=== PATIENT | male | born 1960 | race Caucasian/White ===

== ENCOUNTER 2020-09-15 15:10 | Emergency (ER) | payer BC ==
[2020-09-15 15:18] VITALS: BP 176/83; PULSE 66
--- NOTE | 2020-09-15 15:42 | EDM.PDOC ---
ED HPI GENERAL MEDICAL PROBLEM - General Chief Complaint: Skin Complaint Stated Complaint: R LEG AND BACK SKIN COMPLAINT/POST KNEE SURGERY Time Seen by Provider: 09/15/20 15:31 Source of Information: Reports: Patient, RN Notes Reviewed History Limitations: Reports: No Limitations - History of Present Illness INITIAL COMMENTS - FREE TEXT/NARRATIVE: Patient is a 59-year-old male who presents to the ED for a skin complaint. He notes he had a knee replacement on his right knee last week Wednesday. He notes that yesterday morning, he developed some redness and itching, with some raised bumpy areas to his inner right thigh, and the mid back where he had his nerve block done. He notes this is very very itchy, and he cannot get a lot of sleep due to the itchiness. He did not take any medications at home, because he was not sure if he could after the surgery. Otherwise the surgical site is healing well, and he has no complaints. No fevers or chills, cough or shortness of breath, no nausea/vomiting/diarrhea. - Related Data Allergies Allergy/AdvReac Type Severity Reaction Status Date / Time No Known Allergies Allergy Verified 09/15/20 15:18 Home Meds: Home Meds [place]/Min Oil/[place]ool Alcoh [Eucerin Creme] 1 dose TOP BID PRN 04/13/18 [History] Furosemide 20 mg PO DAILY 04/13/18 [History] Meloxicam 15 mg PO DAILY PRN 04/13/18 [History] carvediloL [Carvedilol] 12.5 mg PO BID 04/13/18 [History] Hydrocodone/Acetaminophen [Hydrocodone-Acetamin 5-325 mg] 1 each PO Q4H PRN 09/15/20 [History] Triamcinolone Acetonide [Triamcinolone Acetonide 0.1% Crm] 1 applic TOP ASDIRECTED #30 gm 09/15/20 [Rx] Past Medical History Cardiovascular History: Reports: Hypertension Respiratory History: Reports: Asthma, Sleep Apnea, Other (See Below) Other Respiratory History: reactive lung disease Gastrointestinal History: Reports: None Genitourinary History: Reports: None 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 Musculoskeletal History: Reports: Osteoarthritis Neurological History: Reports: None Psychiatric History: Reports: None Endocrine/Metabolic History: Reports: None Hematologic History: Reports: None Immunologic History: Reports: None Oncologic (Cancer) History: Reports: None Dermatologic History: Reports: None - Past Surgical History HEENT Surgical History: Reports: Cataract Surgery Male Surgical History: Reports: Vasectomy Musculoskeletal Surgical History: Reports: Knee Replacement (R knee 09/11/2020) Social & Family History - Family History Neurological: Reports: CVA Endocrine/Metabolic: Reports: Diabetes, type II - Tobacco Use Tobacco Use Status *Q: Never Tobacco User - Caffeine Use Caffeine Use: Reports: Coffee - Recreational Drug Use Recreational Drug Use: No ED ROS GENERAL - Review of Systems Review Of Systems: Comprehensive ROS is negative, except as noted in HPI. ED EXAM, SKIN/RASH Exam: See Below Exam Limited By: No Limitations General Appearance: Alert, WD/WN, No Apparent Distress Respiratory/Chest: No Respiratory Distress, Lungs Clear, Normal Breath Sounds, No Accessory Muscle Use, Chest Non-Tender Cardiovascular: Normal Peripheral Pulses, Regular Rate, Rhythm, No Edema Peripheral Pulses: 2+: Dorsalis Pedis (L), Dorsalis Pedis (R) Extremities: Increased Warmth ( Right knee with associated erythema), Other (Well-healing surgical wound for right knee replacement.) Neurological: Alert, Oriented, Normal Cognition, No Motor/Sensory Deficits Psychiatric: Normal Affect, Normal Mood Skin: Warm, Dry, Intact Location, Skin: Back, Lower Extremity, Right Characteristics: Maculopapular, Urticarial, Erythematous Associated features: Warmth. No: Tenderness Course - Vital Signs Last Recorded V/S: Last Vital Signs Temp 98.8 F 09/15/20 15:16 Pulse 66 09/15/20 15:16 Resp 16 09/15/20 15:16 BP 176/83 H 09/15/20 15:16 Pulse Ox 97 09/15/20 15:16 - Re-Assessments/Exams Free Text/Narrative Re-Assessment/Exam: 09/15/20 15:50 Patient presents to the ED for his rash on his right leg and back. Due to these being near surgical sites, is very likely that he could have some skin irritation due to the Betadine soap that was likely used. He will be given a prescription for triamcinolone cream, and will be recommended to take Benadryl for the itching, patient verbalized understanding. Departure - Departure Time of Disposition: 15:40 Disposition: Home, Self-Care 01 Condition: Good Clinical Impression: Contact dermatitis Qualifiers: Contact dermatitis type: irritant Contact dermatitis trigger: other trigger Qualified Code(s): L24.89 - Irritant contact dermatitis due to other agents - Discharge Information *PRESCRIPTION DRUG MONITORING PROGRAM REVIEWED*: No *COPY OF PRESCRIPTION DRUG MONITORING REPORT IN PATIENT [place]: No Prescriptions: Triamcinolone Acetonide [Triamcinolone Acetonide 0.1% Crm] 1 applic TOP ASDIRECTED #30 gm Instructions: Contact Dermatitis, [id number] Referrals: Kori Andino MD [Primary Care Provider] - Forms: ED Department Discharge Additional Instructions: You were seen in this ER for your rash on your leg, and mid back. This is likely due to a contact irritant of the Betadine soap that they used presurgically. You may use 25 mg Benadryl every 4-6 hours as needed for further itch relief. You were given a prescription for triamcinolone cream, please apply liberally to the areas 2 times a day for further rash relief. You may do this until the rash goes away. Recommend you follow-up with your provider as scheduled for follow-up appointments. Please return to the ER at any time if symptoms change or worsen. Sepsis Event Note (ED) - Evaluation Sepsis Screening Result: No Definite Risk - Focused Exam Vital Signs: Vital Signs Temp Pulse Resp BP Pulse Ox 09/15/20 15:16 98.8 F 66 16 176/83 H 97
== END 2020-09-15 15:47 | disposition home or self-care (01) ==
LOC: JD.ED 15:10
DX: L24.89 Irritant contact dermatitis due to other agents (principal); I10 Essential (primary) hypertension; J45.909 Unspecified asthma, uncomplicated; Z79.899 Other long term (current) drug therapy
CPT/HCPCS: 99282

== ENCOUNTER 2021-04-25 19:26 | Emergency (ER) | payer BC ==
[2021-04-25 19:34] VITALS: BP 142/65; PULSE 66
--- NOTE | 2021-04-25 20:02 | EDM.PDOC ---
ED HPI GENERAL MEDICAL PROBLEM - General Chief Complaint: Genitourinary Problem Stated Complaint: BLOOD IN URINE Time Seen by Provider: 04/25/21 19:32 Source of Information: Reports: Patient History Limitations: Reports: No Limitations - History of Present Illness INITIAL COMMENTS - FREE TEXT/NARRATIVE: Mr. Baird is a very pleasant 60-year-old gentleman who now presents the ED stating that he developed painless gross hematuria around 15:00 this afternoon. He states that his urine was normal in appearance when he had last urinated around noon. He denies any flank, lower abdominal, or genital injury. No prior similar symptoms. He has not taken any mryc-cfd-[id number] or home remedies to try to treat his symptoms. Here in the ED, the patient's initial BP is found to be mildly elevated at 142/65, otherwise, he is hemodynamically stable, afebrile, saturating 98% on room air. He appears to be comfortable, in no acute distress. Prior to this afternoon, the patient denies having a recent fever, chills, sore throat, ear pain, nasal or sinus congestion, cough, dyspnea, chest pain, palpitations, nausea, vomiting, constipation, diarrhea, abdominal pain, urinary symptoms, recent weight gain or weight loss, recent bloody bowel movements or black bowel movements, recent joint aches, headaches, or rashes. The patient's PCP is Dr. Kori Youssef. His Orthopedic Surgeon is Dr. Albert Bauman. He has not received a COVID vaccination. - Related Data Allergies Allergy/AdvReac Type Severity Reaction Status Date / Time No Known Allergies Allergy Verified 04/25/21 19:34 Home Meds: Home Meds Furosemide 20 mg PO DAILY 04/13/18 [History] Meloxicam 15 mg PO DAILY PRN 04/13/18 [History] carvediloL [Carvedilol] 12.5 mg PO DAILY 04/13/18 [History] Allopurinol [Zyloprim] 300 mg PO DAILY 04/25/21 [History] Past Medical History Cardiovascular History: Reports: Hypertension Respiratory History: Reports: Sleep Apnea (nightly CPAP) Musculoskeletal History: Reports: Gout (aspiration-proven), Osteoarthritis Endocrine/Metabolic History: Reports: Obesity/BMI 30+ - Infectious Disease History Infectious Disease History: Reports: Chicken Pox - Past Surgical History HEENT Surgical History: Reports: Cataract Surgery (bilateral) Male Surgical History: Reports: Vasectomy (x 2) Musculoskeletal Surgical History: Reports: Knee Replacement (bilateral), Other (See Below) (Right ankle gout surgery) Social & Family History - Tobacco Use Tobacco Use Status *Q: Never Tobacco User Second Hand Smoke Exposure: No - Caffeine Use Caffeine Use: Reports: None - Alcohol Use Alcohol Use History: Yes Alcohol Use Frequency: Rarely - Recreational Drug Use Recreational Drug Use: Yes Drug Use in Last 12 Months: No Recreational Drug Type: Reports: Marijuana/Hashish (last smoked as a teenager) - Living Situation & Occupation Living situation: Reports: , with Spouse, with Family (4 kids) Occupation: Employed ([employer]) ED ROS GENERAL - Review of Systems Review Of Systems: Comprehensive ROS is negative, except as noted in HPI. ED EXAM, RENAL/ - Physical Exam Exam: See Below Exam Limited By: No Limitations General Appearance: Alert, WD/WN, No Apparent Distress Eye Exam: Bilateral Eye: EOMI, Normal Inspection Ears: Normal External Exam, Hearing Grossly Normal Nose: Normal Inspection Throat/Mouth: Normal Inspection, Normal Lips, Normal Voice, No Airway Compromise Head: Atraumatic, Normocephalic Neck: Normal Inspection, Full Range of Motion Respiratory/Chest: No Respiratory Distress, Lungs Clear, Normal Breath Sounds, No Accessory Muscle Use Cardiovascular: Normal Peripheral Pulses, Regular Rate, Rhythm, No Gallop, No JVD, No Murmur, No Rub GI/Abdominal: Normal Bowel Sounds, Soft, Non-Tender, No Organomegaly, No Distention, No Abnormal Bruit, No Mass Back Exam: Normal Inspection, Full Range of Motion. No: CVA Tenderness (L), CVA Tenderness (R) Extremities: Normal Inspection, Normal Range of Motion, Normal Capillary Refill Neurological: Alert, Oriented, Normal Cognition, No Motor/Sensory Deficits Psychiatric: Normal Affect Skin Exam: Warm, Dry, Intact, Normal Color, No Rash Course - Vital Signs Last Recorded V/S: Last Vital Signs Temp 36.3 C 04/25/21 19:32 Pulse 66 04/25/21 19:32 Resp 18 04/25/21 19:32 BP 142/65 H 04/25/21 19:32 Pulse Ox 98 04/25/21 19:32 - Orders/Labs/Meds Labs: Laboratory Tests 04/25/21 04/25/2121 Range/Units 19:47 20:10 20:10 WBC 8.11 (4.23-9.07) K/mm3 RBC 4.96 (4.63-6.08) M/mm3 Hgb 14.0 (13.7-17.5) gm/dl Hct 43.4 (40.1-51.0) % MCV 87.5 (79.0-92.2) fl MCH 28.2 (25.7-32.2) pg MCHC 32.3 (32.2-35.5) g/dl RDW Std Deviation 46.1 H (35.1-43.9) fL Plt Count 304 (163-337) K/mm3 MPV 9.0 L (9.4-12.3) fl Neutrophils % (Manual) 69 H (40-60) % Band Neutrophils % 0 (0-10) % Lymphocytes % (Manual) 16 L (20-40) % Atypical Lymphs % 0 % Monocytes % (Manual) 10 (2-10) % Eosinophils % (Manual) 5 (0.8-7.0) % Basophils % (Manual) 0 L (0.2-1.2) Platelet Estimate Adequate RBC Morph Comment Normal PT (9.7-12.0) SECONDS INR APTT (21.7-31.4) SECONDS Sodium 140 (136-145) mEq/L Potassium 3.8 (3.5-5.1) mEq/L Chloride 106 (98-107) mEq/L Carbon Dioxide 25 (21-32) mEq/L Anion Gap 12.8 (5-15) BUN 17 (7-18) mg/dL Creatinine 1.0 (0.7-1.3) mg/dL Est Cr Clr Drug Dosing 81.11 mL/min Estimated GFR (MDRD) > 60 (>60) mL/min BUN/Creatinine Ratio 17.0 (14-18) Glucose 122 H (70-99) mg/dL Calcium 8.2 L (8.5-10.1) mg/dL Total Bilirubin 0.3 (0.2-1.0) mg/dL AST 11 L (15-37) U/L ALT 27 (16-63) U/L Alkaline Phosphatase 95 (46-116) U/L Lactate Dehydrogenase 155 (85-227) U/L Creatine Kinase 100 (39-308) U/L Total Protein 7.2 (6.4-8.2) g/dl Albumin 3.5 (3.4-5.0) g/dl Globulin 3.7 gm/dL Albumin/Globulin Ratio 1.0 (1-2) Urine Color Other H (Yellow) Urine Appearance Turbid H (Clear) Urine pH 5.5 (5.0-8.0) Ur Specific Jeffrey 1.020 (1.005-1.030) Urine Protein 3+ H (Negative) Urine Glucose (UA) Trace H (Negative) Urine Ketones 1+ H (Negative) Urine Occult Blood 3+ H (Negative) Urine Nitrite Negative (Negative) Urine Bilirubin 3+ H (Negative) Urine Urobilinogen 4.0 H (0.2-1.0) Ur Leukocyte Esterase 3+ H (Negative) Urine RBC Too numerous to cnt H (0-5) /hpf Urine WBC Not seen (0-5) /hpf Ur Squamous Epith Cells Not seen (0-5) /hpf Urine Bacteria Not seen (FEW) /hpf Urine Mucus Not seen (FEW) /hpf 08// Range/Units 20:10 WBC (4.23-9.07) K/mm3 RBC (4.63-6.08) M/mm3 Hgb (13.7-17.5) gm/dl Hct (40.1-51.0) % MCV (79.0-92.2) fl MCH (25.7-32.2) pg MCHC (32.2-35.5) g/dl RDW Std Deviation (35.1-43.9) fL Plt Count (163-337) K/mm3 MPV (9.4-12.3) fl Neutrophils % (Manual) (40-60) % Band Neutrophils % (0-10) % Lymphocytes % (Manual) (20-40) % Atypical Lymphs % % Monocytes % (Manual) (2-10) % Eosinophils % (Manual) (0.8-7.0) % Basophils % (Manual) (0.2-1.2) Platelet Estimate RBC Morph Comment PT 11.1 (9.7-12.0) SECONDS INR 1.04 APTT 27.6 (21.7-31.4) SECONDS Sodium (136-145) mEq/L Potassium (3.5-5.1) mEq/L Chloride (98-107) mEq/L Carbon Dioxide (21-32) mEq/L Anion Gap (5-15) BUN (7-18) mg/dL Creatinine (0.7-1.3) mg/dL Est Cr Clr Drug Dosing mL/min Estimated GFR (MDRD) (>60) mL/min BUN/Creatinine Ratio (14-18) Glucose (70-99) mg/dL Calcium (8.5-10.1) mg/dL Total Bilirubin (0.2-1.0) mg/dL AST (15-37) U/L ALT (16-63) U/L Alkaline Phosphatase (46-116) U/L Lactate Dehydrogenase (85-227) U/L Creatine Kinase (39-308) U/L Total Protein (6.4-8.2) g/dl Albumin (3.4-5.0) g/dl Globulin gm/dL Albumin/Globulin Ratio (1-2) Urine Color (Yellow) Urine Appearance (Clear) Urine pH (5.0-8.0) Ur Specific Jeffrey (1.005-1.030) Urine Protein (Negative) Urine Glucose (UA) (Negative) Urine Ketones (Negative) Urine Occult Blood (Negative) Urine Nitrite (Negative) Urine Bilirubin (Negative) Urine Urobilinogen (0.2-1.0) Ur Leukocyte Esterase (Negative) Urine RBC (0-5) /hpf Urine WBC (0-5) /hpf Ur Squamous Epith Cells (0-5) /hpf Urine Bacteria (FEW) /hpf Urine Mucus (FEW) /hpf - Re-Assessments/Exams Free Text/Narrative Re-Assessment/Exam: 04/25/21 20:00 As above, the patient developed painless gross hematuria around 15:00 this afternoon. He states that his urine was perfectly normal in appearance when he had last urinated at noon. No prior similar symptoms, and no recent injury. His physical exam is unremarkable. A urine sample in a urinal is deeply red in appearance. I have ordered a work-up including a urinalysis by clean-catch, along with several blood tests, including a CBC, CMP, CPK, LDH, and coags. 04/25/21 21:11 The patient's CBC is unremarkable. His CMP is remarkable for slight hyperglycemia of 122, with remainder of his CMP being unremarkable. His LDH is within normal limits at 155. His CPK is within normal limits at 100. His coags are within normal limits. His urinalysis is remarkable for turbid appearance, 3+ occult blood with too many RBCs to count, 3+ leukocyte esterase with no WBCs, nitrate negative with no bacteria, and no squamous epithelial cells. 04/25/21 21:17 As above, the urinalysis is not consistent with a UTI. The next step in his evaluation is a CT of the abdomen and pelvis without and with IV contrast for urography. This is a different study than a standard CT of the abdomen and pelvis. I asked our assembly technician if we can do that study here, and she is not familiar with it. 04/25/21 22:15 There was a delay in my getting back to the patient with his test results due to my transferring a teen with a TBI/ICH. The patient expressed understanding for the wait. I will discharge the patient home with the recommendation that he follow-up with Dr. Triana first thing Wednesday. She can order the CT of the abdomen and pelvis without and with IV contrast for urography. She can then refer the patient to a Asbestos Handler or Urologist for further work-up. In the meantime, I recommended that the patient stay adequately hydrated, although he should avoid alcohol, and I also requested that he avoid NSAIDs. If he develops any pain, he should return to the ED for reevaluation. Departure - Departure Time of Disposition: 22:18 Disposition: Home, Self-Care 01 Condition: Good Clinical Impression: Gross hematuria - Discharge Information *PRESCRIPTION DRUG MONITORING PROGRAM REVIEWED*: Not Applicable *COPY OF PRESCRIPTION DRUG MONITORING REPORT IN PATIENT [place]: Not Applicable Instructions: Hematuria, Adult Referrals: Kori Andino MD [Primary Care Provider] - Albert Bauman MD [Physician] - Forms: ED Department Discharge Additional Instructions: You were seen in the emergency room after developing painless bloody urine this afternoon. Work-up in the ER included numerous blood tests and a urinalysis. The urine confirmed a significant amount of blood, however, there is no sign of a urinary tract infection. Your blood work was unremarkable. You are not anemic. Your kidney function is normal. The cause of your bloody urine is not known. Further evaluation is necessary. We recommend that you follow-up with your PCP, Dr. Kori Youssef, first thing Wednesday morning, 04/28/2021. Current guidelines recommend that a CT of your abdomen and pelvis without and with IV contrast for urography be performed. She can order that test, and refer you to a sleeve setter lockstitch or urologist, as needed. Over the weekend, we recommend that you stay adequately hydrated. Avoid alcohol. You may take [id number]-[id number] acetaminophen (Tylenol) as needed for discomfort, however, we recommend that you not take any NSAIDs, including aspirin, ibuprofen (Advil, Motrin), or naproxen (Aleve). If you develop pain, particularly of either of your flanks or of your lower abdo men, please return to the ER for reevaluation. Sepsis Event Note (ED) - Evaluation Sepsis Screening Result: No Definite Risk - Focused Exam Vital Signs: Vital Signs Temp Pulse Resp BP Pulse Ox 04/25/21 19:32 36.3 C 66 18 142/65 H 98
== END 2021-04-25 22:28 | disposition home or self-care (01) ==
LOC: JD.ED 19:26
DX: R31.0 Gross hematuria (principal); M10.9 Gout, unspecified; I10 Essential (primary) hypertension; E66.9 Obesity, unspecified; Z68.39 Body mass index [BMI] 39.0-39.9, adult; Z79.899 Other long term (current) drug therapy
CPT/HCPCS: 36415; 80053; 81001; 82550; 83615; 85007; 85027; 85610; 85730; 99283; 99284

== ENCOUNTER 2022-01-18 02:11 | Emergency (ER) | payer BC ==
[2022-01-18] MEDS ORDERED: Ondansetron 4 MG/2 ML SDV IVPUSH ONE (02:41)
[2022-01-18] MEDS ORDERED: Sodium Chloride 0.9% 10 ML Syringe FLUSH PRN (02:41)
[2022-01-18] MEDS ORDERED: Sodium Chloride 0.9% 1,000 ML IV STA (02:41)
[2022-01-18] MEDS ORDERED: HYDROmorphone 0.5 MG/0.5 ML Syringe IVPUSH ONE ×2 (02:42→02:58)
[2022-01-18] MEDS ORDERED: Albuterol/Ipratropium 3.0-0.5 MG/3 ML Neb Soln NEB ONE (02:43)
[2022-01-18] MEDS ORDERED: Ketorolac 30 MG/ML SDV IVPUSH ONE (04:29)
[2022-01-18 05:26] VITALS: BP 142/77; PULSE 80
== END 2022-01-18 05:15 | disposition home or self-care (01) ==
LOC: JD.ED 02:11
DX: N13.2 Hydronephrosis with renal and ureteral calculous obstruction (principal); I10 Essential (primary) hypertension; M10.9 Gout, unspecified; M19.90 Unspecified osteoarthritis, unspecified site; E66.9 Obesity, unspecified; Z68.41 Body mass index [BMI] 40.0-44.9, adult; Z79.899 Other long term (current) drug therapy
CPT/HCPCS: 36415; 74177; 80053; 81001; 83690; 85025; 94640; 96374; 96375; 99284; J1170; J2405; J7030; J7620-GY

== ENCOUNTER 2022-03-02 08:15 | Day surgery (SDC) | payer BC ==
[~2022-03-02 08:15] MED LIST: Lactated Ringers 1,000 ML IV SCH; Lidocaine 1%/Sod Bicarbonate in NS 8.4% 1 ML Syringe IDERM PRN; Propofol 200 MG/20 ML SDV ONE; Sodium Chloride 0.9% 10 ML Syringe FLUSH PRN; Sodium Chloride 0.9% 10 ML Syringe FLUSH SCH
[2022-03-02] MEDS ORDERED: Propofol 200 MG/20 ML SDV ONE (08:16)
[2022-03-02 09:06] VITALS: BP 123/84; PULSE 80
== END 2022-03-02 09:14 | disposition home or self-care (01) ==
LOC: JD.SDS 08:15
PROVIDERS: ATTEND Surgery
DX: D12.0 Benign neoplasm of cecum (principal); G47.33 Obstructive sleep apnea (adult) (pediatric); I10 Essential (primary) hypertension; E66.9 Obesity, unspecified; Z98.890 Other specified postprocedural states; Z79.899 Other long term (current) drug therapy; Z88.8 Allergy status to other drugs, medicaments and biological substances; Z68.41 Body mass index [BMI] 40.0-44.9, adult
CPT/HCPCS: 45380; J2704; J7120; 00811